=== PATIENT | male | born 1990 | race Two or more races ===

== ENCOUNTER 2022-03-09 00:44 | Emergency (ER) | payer OTHER ==
[~2022-03-09] VITALS: Ht 177.8 cm; Wt 97.5 kg
== END 2022-03-09 07:51 ==
LOC: ER 00:44
DX: R00.2 Palpitations (principal); Z88.4 Allergy status to anesthetic agent

== ENCOUNTER 2023-07-27 03:18 | Emergency (ER) | payer OTHER ==
[~2023-07-27] VITALS: Ht 177.8 cm; Wt 113.4 kg
[2023-07-27] MEDS ORDERED: KETOROLAC TROMETHAMINE 60 MG VIAL IM STA (04:43)
[2023-07-27] MEDS ORDERED: hydrOXYzine PAMOATE 50 MG CAPSULE PO STA (04:43)
== END 2023-07-27 05:06 | disposition home or self-care (01) ==
LOC: ER 03:19
DX: G44.209 Tension-type headache, unspecified, not intractable (principal); Z88.4 Allergy status to anesthetic agent

== ENCOUNTER 2024-07-09 22:28 | Emergency (ER) | payer OTHER ==
[~2024-07-09] VITALS: Ht 177.8 cm; Wt 106.6 kg
[~2024-07-09 22:28] MED LIST: CIPRO500 MG PO; LEVSIN/SL0.125 MG SL; METRONIDAZOLE500 MG PO; OMEPRAZOLE40 MG PO
[2024-07-09] MEDS ORDERED: PANTOPRAZOLE SODIUM 40 MG in 0.9 % SODIUM CHLORIDE 8 ML IV PUSH STA (22:54)
[2024-07-09] MEDS ORDERED: 0.9 % SODIUM CHLORIDE 1,000 ML IV SCH (23:00)
[2024-07-09] MEDS ORDERED: HYOSCYAMINE SULFATE 0.125 MG TAB.SUBL SL ONE (23:00)
[2024-07-09] MEDS ORDERED: METRONIDAZOLE/SODIUM CHLORIDE 500 MG/100 ML PIGGYBACK IV ONE ×2 (23:00→23:08)
[2024-07-09] MEDS ORDERED: CIPROFLOXACIN IN 5 % DEXTROSE 400 MG/200 ML PIGGYBAG IV ONE ×2 (23:00→23:08)
[2024-07-09] MEDS ORDERED: HYOSCYAMINE SULFATE 0.125 MG TAB.SUBL ONE (23:08)
[2024-07-09] MEDS ORDERED: BARIUM SULFATE 450 ML ORAL.SUSP PO ONE (23:09)
[2024-07-09 23:47] LABS: HEMATOCRIT 45.2 % (39.0-48.0); HEMOGLOBIN 14.8 g/dL (13-16.00); MEAN CELL VOLUME 88.7 fL (80.0-100.00); MEAN CORPUSCULAR HEMOGLOBIN 29.1 pg (27.00-32.0); MEAN CORPUSCULAR HGB CONC 32.8 g/dl (32.0-36.0); PLATELET COUNT 234 K/uL (150-450); RED BLOOD COUNT 5.09 M/uL (4.00-6.00); RED CELL DISTRIBUTION WIDTH 13.4 % (11.5-14.5)
[2024-07-09 23:50] LABS: ERYTHROCYTE SEDIMENTATION RATE 21 mm/hr
[2024-07-10 00:05] LABS: ALBUMIN 4.2 gm/dL (3.4-5.0); BILIRUBIN TOTAL 0.26 mg/dL (0.3-1.2); CALCIUM 9.9 mg/dL (8.5-10.1); CREATININE SERUM 1.07 mg/dL (0.70-1.30); GFR 79.11; POTASSIUM 4.1 mEq/L (3.5-5.1); TOTAL PROTEIN 8.2 gm/dL (6.4-8.2)
[2024-07-10 00:11] LABS: C-REACTIVE PROTEIN 0.67 MG/DL (0.00-0.29)
== END 2024-07-10 06:17 | disposition home or self-care (01) ==
LOC: ER 22:31
PROVIDERS: General Practice
DX: R10.32 Left lower quadrant pain (principal); K52.89 Other specified noninfective gastroenteritis and colitis; K62.5 Hemorrhage of anus and rectum; K64.4 Residual hemorrhoidal skin tags; Z88.8 Allergy status to other drugs, medicaments and biological substances